=== PATIENT | male | born 1965 | race Caucasian/White ===

== ENCOUNTER → 2016-12-23 | Outpatient (CLI) | payer OTHER ==
[~2016-12-23] MED LIST: FLEXERIL 10 MG10 MG PO; GLUCOVANCE 5-51 EACH PO; LEVEMIR100 UNIT/1 SQ; LYRICA150 MG PO; NORCO 7.5-3251 EACH PO; PRINIVIL20 MG PO; ZYVOX600 MG PO
== END ==
LOC: OPSV 12:00
DX: L30.9 Dermatitis, unspecified (principal); B95.62 Methicillin resistant Staphylococcus aureus infection as the cause of diseases classified elsewhere
CPT/HCPCS: G0463

== ENCOUNTER → 2020-10-24 | Outpatient (CLI) | payer OTHER ==
[~2020-10-24] MED LIST changes: +ACTOS15 MG PO; +ADVIL200 M1 PO; +ALL DAY ALLERGY10 M2 PO; +BACTRIM DS TAB1 EACH PO; +BACTROBAN OINT22 GM EXT; +BACTROBAN OINT22 GM TOP; +CLEOCIN HCL300 MG PO; +CYMBALTA 30 MG30 MG PO; +GLYBURIDE-METF1 EAC1 PO; +LISINOPRIL-HCT1 EAC1 PO; +NEURONTIN600 MG PO; +PREDNISONE5 MG PO; +SUBOXONE 8 MG-1 EACH SL; +VANCOCIN IV 11000 MG IV; +ZOCOR40 MG PO
== END ==
LOC: EMI 15:03
DX: E11.621 Type 2 diabetes mellitus with foot ulcer (principal); L97.429 Non-pressure chronic ulcer of left heel and midfoot with unspecified severity
CPT/HCPCS: 73718

== ENCOUNTER → 2020-11-04 | Outpatient (CLI) | payer OTHER ==
[~2020-11-04] VITALS: Ht 170.2 cm; Wt 75.7 kg
[2020-11-04 11:00] LABS: BUN/CREATININE RATIO 22 (0-10)
--- NOTE | 2020-11-04 12:06 | NUR ---
Single lumen PICC line inserted in the right brachial vein, cut to 39 cm. 3CG technology used to confirm PICC tip in SVC. Upper arm circ = 28.5 cm, lower arm circ = 26 cm. Aspirates and flushes fine. No complications.
== END ==
LOC: OPSV 09:14
PROVIDERS: Podiatrist Foot & Ankle Surgery
DX: E11.621 Type 2 diabetes mellitus with foot ulcer (principal); L97.509 Non-pressure chronic ulcer of other part of unspecified foot with unspecified severity
CPT/HCPCS: 36415; 80053; 96365; C1751; J2185

== ENCOUNTER 2020-11-09 06:47 | Emergency (ER) | payer OTHER | END 2020-11-09 08:00 | disposition home or self-care (01) | LOC: ER1 06:47 | DX: Z45.2 Encounter for adjustment and management of vascular access device (principal); E11.621 Type 2 diabetes mellitus with foot ulcer; L97.529 Non-pressure chronic ulcer of other part of left foot with unspecified severity; Z90.89 Acquired absence of other organs | CPT/HCPCS: 99283 ==

== ENCOUNTER 2020-11-10 16:26 | Emergency (ER) | payer OTHER | END 2020-11-10 16:37 | disposition left against medical advice (07) | LOC: ER1 16:26 | DX: Z53.21 Procedure and treatment not carried out due to patient leaving prior to being seen by health care provider (principal) ==

== ENCOUNTER → 2020-11-12 | Outpatient (CLI) | payer OTHER | LOC: OPSV 07:23 | DX: Z45.2 Encounter for adjustment and management of vascular access device (principal) | CPT/HCPCS: C1751 ==

== ENCOUNTER → 2020-12-23 | Outpatient (CLI) | payer OTHER | LOC: LBRF 17:43 | DX: E11.621 Type 2 diabetes mellitus with foot ulcer (principal); L97.529 Non-pressure chronic ulcer of other part of left foot with unspecified severity | CPT/HCPCS: 87070; 87205 ==

== ENCOUNTER → 2020-12-26 | Outpatient (CLI) | payer OTHER | LOC: KOH-I 08:45 | DX: E11.69 Type 2 diabetes mellitus with other specified complication (principal); M86.9 Osteomyelitis, unspecified; T81.89XA Other complications of procedures, not elsewhere classified, initial encounter; L03.116 Cellulitis of left lower limb | CPT/HCPCS: 73718 ==

== ENCOUNTER → 2021-01-12 | Outpatient (CLI) | payer OTHER ==
[2021-01-12 15:28] LABS: HEMOGLOBIN 11.1 gm/dl (14.0-17.5); RED BLOOD COUNT 4.37 M/UL (4.20-5.50); WHITE BLOOD COUNT 11.1 K/UL (4.5-11.0)
[2021-01-12 15:44] LABS: BUN/CREATININE RATIO 20 (0-10)
== END ==
LOC: LBRF 14:20
PROVIDERS: Podiatrist Foot & Ankle Surgery
DX: Z51.81 Encounter for therapeutic drug level monitoring (principal); Z79.2 Long term (current) use of antibiotics
CPT/HCPCS: 80048; 85027; 85652; 86140

== ENCOUNTER → 2021-02-02 | Outpatient (CLI) | payer OTHER ==
[2021-02-02 17:49] LABS: HEMOGLOBIN 10.7 gm/dl (14.0-17.5); RED BLOOD COUNT 4.15 M/UL (4.20-5.50); WHITE BLOOD COUNT 9.8 K/UL (4.5-11.0)
[2021-02-02 18:08] LABS: BUN/CREATININE RATIO 23 (0-10)
== END ==
LOC: LBRF 16:19
PROVIDERS: Podiatrist Foot & Ankle Surgery
DX: Z51.81 Encounter for therapeutic drug level monitoring (principal); Z79.2 Long term (current) use of antibiotics
CPT/HCPCS: 80048; 85027; 85652; 86140

== ENCOUNTER 2021-02-05 13:17 | Inpatient (IN) | payer OTHER ==
[~2021-02-05] VITALS: Ht 170.2 cm; Wt 80.7 kg
[~2021-02-05 13:17] MED LIST changes: +ACTOS30 MG PO; +CYMBALTA 20 MG20 MG PO; -FLEXERIL 10 MG10 MG PO; -LEVEMIR100 UNIT/1 SQ
[2021-02-05] MEDS ORDERED: AMLODIPINE BESY10 MG PO (17:35)
[2021-02-05] MEDS ORDERED: JARDIANCE25 MG PO (17:36)
[2021-02-05] MEDS ORDERED: METFORMIN HCL1000 MG PO (17:36)
[2021-02-05] MEDS ORDERED: LISINOPRIL40 MG PO (17:36)
[2021-02-05] MEDS ORDERED: VITAMIN D325 MCG PO (17:37)
[2021-02-05] MEDS ORDERED: CRESTOR20 MG PO (17:37)
[2021-02-05 19:59] LABS: HEMOGLOBIN 11.6 gm/dl (14.0-17.5); RED BLOOD COUNT 4.49 M/UL (4.20-5.50); WHITE BLOOD COUNT 10.2 K/UL (4.5-11.0)
[2021-02-05 20:30] LABS: BUN/CREATININE RATIO 16 (0-10)
[2021-02-05] MEDS ORDERED: LEVEMIR100 UNIT/1 SQ (20:30)
[2021-02-05] MEDS ORDERED: CYCLOBENZAPRINE10 MG PO (22:44)
[2021-02-05] MEDS ORDERED: SUBOXONE 8 MG-1 EACH SL (23:47)
--- NOTE | 2021-02-06 16:15 | NUR ---
Right sided PICC line removed per Dr. Hays's orders. Redness noted with some purulent drainage from site. PICC line placed during first part of November of this year. PICC line had approximately 6 cm external. Pt not aware of when the PICC line had been pulled back. 20g PIV placed in left ac prior to PICC removal. Will address need for additional venous access as need arises.
[2021-02-07 07:16] LABS: HEMOGLOBIN 10.3 gm/dl (14.0-17.5); WHITE BLOOD COUNT 11.1 K/UL (4.5-11.0)
[2021-02-07 07:18] LABS: RED BLOOD COUNT 4.01 M/UL (4.20-5.50)
[2021-02-07 08:43] LABS: BUN/CREATININE RATIO 21 (0-10)
[2021-02-08 06:53] LABS: HEMOGLOBIN 9.8 gm/dl (14.0-17.5); RED BLOOD COUNT 3.9 M/UL (4.20-5.50)
[2021-02-08 06:55] LABS: WHITE BLOOD COUNT 14.7 K/UL (4.5-11.0)
[2021-02-08 07:22] LABS: BUN/CREATININE RATIO 26 (0-10)
[2021-02-09 06:27] LABS: HEMOGLOBIN 10.5 gm/dl (14.0-17.5); RED BLOOD COUNT 4.17 M/UL (4.20-5.50); WHITE BLOOD COUNT 12.2 K/UL (4.5-11.0)
[2021-02-09 07:06] LABS: BUN/CREATININE RATIO 23 (0-10)
[2021-02-10 06:17] LABS: HEMOGLOBIN 10.3 gm/dl (14.0-17.5); RED BLOOD COUNT 4.05 M/UL (4.20-5.50); WHITE BLOOD COUNT 10.3 K/UL (4.5-11.0)
[2021-02-10 06:39] LABS: BUN/CREATININE RATIO 20 (0-10)
--- NOTE | 2021-02-10 07:16 | NUR ---
notified security to find patient r/t blood sugar low x2. called for aldridge alert
--- NOTE | 2021-02-10 07:26 | NUR ---
aldridge alert deactivated. patient was in his truck smoking outside and stated he will come up when he's ready to, report from security
--- NOTE | 2021-02-10 08:38 | NUR ---
Patient came back to floor at 0820. Blood glucose was checked and it was 130. Patient has no s/s of hypoglycemia and no concerns at this time.
--- NOTE | 2021-02-10 08:44 | NUR ---
patient arrived on the floor @0820. patient not receptive of smoking cessation teachings and provide teaching of hypoglycemia and acknowledged
--- NOTE | 2021-02-10 12:05 | NUR ---
patient off of the floor at this time to smoke.
--- NOTE | 2021-02-10 18:54 | NUR ---
provided aircast boot to patient and instructed use and stated i had this several times and familiar with it. informed of wound dressing to begin tomorrow on the hemovac site.
[2021-02-11 04:35] LABS: HEMOGLOBIN 10.5 gm/dl (14.0-17.5); RED BLOOD COUNT 4.11 M/UL (4.20-5.50); WHITE BLOOD COUNT 10.2 K/UL (4.5-11.0)
[2021-02-11 05:04] LABS: BUN/CREATININE RATIO 18 (0-10)
--- NOTE | 2021-02-11 06:31 | NUR ---
CRITICAL BGL OF 49 WAS CALLED BY LAB. I RECHECKED AT [facility] AND BGFL WAS 99, I GAVE PATIENT A CUP OF OJ AND RECHECKED IN 15 MINUTES BGL WAS 115. WILL NOTIFY [facility] OF THE PATIENTS DROPPING BGL THE PAST 2 MORNINGS AND SUGGEST THAT MAYBE THE LANTUS CAN BE DECREASED BY
--- NOTE | 2021-02-11 10:08 | NUR ---
discussed with dr. ramírez of patient morning bs ranges on 40's as what happened yesterday morning that resulted of aldridge alert, of considering to look at his blood sugar medications- dr. ramírez acknowledged.
[2021-02-11] MEDS ORDERED: DIFLUCAN200 MG PO (10:12)
[2021-02-11] MEDS ORDERED: FIRST AID ANT28.4 G1 TOP (10:12)
--- NOTE | 2021-02-11 15:18 | NUR ---
patient persistent to leave at [address] ramírez, dr martinez aware. case consultant waiting for insurance to approve IV home medications. patient and the above doctors and case consultant agreed for patient to go to outpatient clinic for IV antibiotics and wound care. patient off the floor to smoke. patient has been off the floor several times that has been affecting of providing care.
--- NOTE | 2021-02-11 15:57 | NUR ---
instructed/informed patient of [facility] outpatient infusion clinic at 10 am -[facility] UND[facility]STANDING
[2021-02-14 14:09] LABS: AMPHETAMINES, URINE Negative ng/mL (Cutoff=1000); BARBITURATE Negative ng/mL (Cutoff=200); BENZODIAZEPINES Negative ng/mL (Cutoff=200); CANNABINOIDS Negative ng/mL (Cutoff=20); COCAINE (METABOLITE) Negative ng/mL (Cutoff=300); CREATININE 73.6 mg/dL (20.0-300.0); ETHANOL CONFIRM 0.039 % (Cutoff=0.020); MEPERIDINE Negative ng/mL (Cutoff=200); METHADONE Negative ng/mL (Cutoff=300); OPIATES Negative ng/mL (Cutoff=300); PHENCYCLIDINE Negative ng/mL (Cutoff=25); PROPOXYPHENE Negative ng/mL (Cutoff=300)
== END 2021-02-11 16:15 | disposition home health service (06) | DRG 264 ==
LOC: M/S 13:17
PROVIDERS: Physician Assistant; Podiatrist Foot & Ankle Surgery; ADMIT Internal Medicine
PROC: 0HRNXK3 Replacement of Left Foot Skin with Nonautologous Tissue Substitute, Full Thickness, External Approach (ICD-10-PCS; 2021-02-07)
PROC: 0QTP0ZZ Resection of Left Metatarsal, Open Approach (ICD-10-PCS; 2021-02-07)
PROC: 0JBR0ZZ Excision of Left Foot Subcutaneous Tissue and Fascia, Open Approach (ICD-10-PCS; principal; 2021-02-07 09:24)
PROC: 02HV33Z Insertion of Infusion Device into Superior Vena Cava, Percutaneous Approach (ICD-10-PCS; 2021-02-11)
PROC: B548ZZA Ultrasonography of Superior Vena Cava, Guidance (ICD-10-PCS; 2021-02-11)
PROC: 02PYX3Z Removal of Infusion Device from Great Vessel, External Approach (ICD-10-PCS; 2021-02-11)
DX: E11.52 Type 2 diabetes mellitus with diabetic peripheral angiopathy with gangrene (principal); Z20.822 Contact with and (suspected) exposure to COVID-19; T80.211A Bloodstream infection due to central venous catheter, initial encounter; F11.20 Opioid dependence, uncomplicated; M86.672 Other chronic osteomyelitis, left ankle and foot; E11.69 Type 2 diabetes mellitus with other specified complication; B35.3 Tinea pedis; E83.42 Hypomagnesemia; I10 Essential (primary) hypertension; F17.210 Nicotine dependence, cigarettes, uncomplicated; Y84.8 Other medical procedures as the cause of abnormal reaction of the patient, or of later complication, without mention of misadventure at the time of the procedure; I45.81 Long QT syndrome; E11.649 Type 2 diabetes mellitus with hypoglycemia without coma; Z79.4 Long term (current) use of insulin; Z89.432 Acquired absence of left foot
CPT/HCPCS: 36415; 71045; 73200; 80048; 80053; 80061; 80202; 80307; 81001; 82728; 82962; 83036; 83540; 83550; 83735; 85025; 85027; 85652; 86140; 87040; 87070; 87086; 87205; 93005; 97161; C1713; J0692; J1100; J1650; J1956; J2001; J2248; J2270; J2405; J2704; J2795; J3010; J3370; J3475; J7030; J7050; J7070; U0002

== ENCOUNTER → 2021-02-12 | Outpatient (CLI) | payer OTHER ==
[~2021-02-12] VITALS: Ht 167.6 cm; Wt 80.0 kg
[~2021-02-12] MED LIST changes: +AMLODIPINE BESY10 MG PO; +CRESTOR20 MG PO; +CYCLOBENZAPRINE10 MG PO; +DIFLUCAN200 MG PO; +FIRST AID ANT28.4 G1 TOP; +JARDIANCE25 MG PO; +LEVEMIR100 UNIT/1 SQ; +LISINOPRIL40 MG PO; +METFORMIN HCL1000 MG PO; +VITAMIN D325 MCG PO
== END ==
LOC: OPSV 10:00
DX: M86.172 Other acute osteomyelitis, left ankle and foot (principal)
CPT/HCPCS: 96365; J1335

== ENCOUNTER → 2021-02-14 | Outpatient (CLI) | payer OTHER | LOC: OPSV 02-13 10:00 | DX: M86.172 Other acute osteomyelitis, left ankle and foot (principal) | CPT/HCPCS: 96365; J1335 ==

== ENCOUNTER → 2021-02-15 | Outpatient (CLI) | payer OTHER | LOC: EROP 10:18 | DX: M86.172 Other acute osteomyelitis, left ankle and foot (principal) | CPT/HCPCS: 96365; J1335 ==

== ENCOUNTER → 2021-02-16 | Outpatient (CLI) | payer OTHER ==
[~2021-02-16] VITALS: Ht 167.6 cm; Wt 80.0 kg
== END ==
LOC: OPSV 13:28
DX: M86.172 Other acute osteomyelitis, left ankle and foot (principal)
CPT/HCPCS: 96365; J1335

== ENCOUNTER → 2021-02-17 | Outpatient (CLI) | payer OTHER ==
[~2021-02-17] VITALS: Ht 167.6 cm; Wt 80.0 kg
== END ==
LOC: OPSV 09:00
DX: M86.172 Other acute osteomyelitis, left ankle and foot (principal)
CPT/HCPCS: 96365; J1335

== ENCOUNTER → 2021-02-18 | Outpatient (CLI) | payer OTHER ==
[~2021-02-18] VITALS: Ht 167.6 cm; Wt 80.0 kg
== END ==
LOC: OPSV 08:59
DX: M86.172 Other acute osteomyelitis, left ankle and foot (principal)
CPT/HCPCS: 96365; J1335

== ENCOUNTER → 2021-02-19 | Outpatient (CLI) | payer OTHER ==
[~2021-02-19] VITALS: Ht 167.6 cm; Wt 80.0 kg
== END ==
LOC: OPSV 08:58
DX: M86.8X7 Other osteomyelitis, ankle and foot (principal)
CPT/HCPCS: 96365; J1335

== ENCOUNTER → 2021-02-20 | Outpatient (CLI) | payer OTHER ==
[~2021-02-20] VITALS: Ht 167.6 cm; Wt 80.0 kg
== END ==
LOC: OPSV 07:49
DX: M86.172 Other acute osteomyelitis, left ankle and foot (principal)
CPT/HCPCS: 96365; J1335

== ENCOUNTER → 2021-02-23 | Outpatient (CLI) | payer OTHER ==
[~2021-02-23] VITALS: Ht 167.6 cm; Wt 80.0 kg
== END ==
LOC: OPSV 08:16
DX: M86.172 Other acute osteomyelitis, left ankle and foot (principal)
CPT/HCPCS: 96365; J1335

== ENCOUNTER → 2021-02-26 | Outpatient (CLI) | payer OTHER ==
[~2021-02-26] VITALS: Ht 167.6 cm; Wt 36.3 kg
== END ==
LOC: OPSV 09:00
DX: M86.9 Osteomyelitis, unspecified (principal)
CPT/HCPCS: 96365; J1335

== ENCOUNTER → 2021-02-27 | Outpatient (CLI) | payer OTHER ==
[~2021-02-27] VITALS: Ht 167.6 cm; Wt 80.0 kg
== END ==
LOC: OPSV 09:00
DX: M86.172 Other acute osteomyelitis, left ankle and foot (principal)
CPT/HCPCS: 96365; J1335

== ENCOUNTER → 2021-03-02 | Outpatient (CLI) | payer OTHER ==
[~2021-03-02] VITALS: Ht 167.6 cm; Wt 80.0 kg
== END ==
LOC: OPSV 09:00
DX: M86.172 Other acute osteomyelitis, left ankle and foot (principal)
CPT/HCPCS: 96365; J1335

== ENCOUNTER → 2021-03-03 | Outpatient (CLI) | payer OTHER | LOC: OPSV 09:00 | DX: M86.172 Other acute osteomyelitis, left ankle and foot (principal) | CPT/HCPCS: 96365; J1335 ==

== ENCOUNTER → 2021-03-04 | Outpatient (CLI) | payer OTHER ==
[~2021-03-04] VITALS: Ht 167.6 cm; Wt 80.0 kg
== END ==
LOC: OPSV 09:00
DX: M86.172 Other acute osteomyelitis, left ankle and foot (principal)
CPT/HCPCS: 96365; J1335

== ENCOUNTER → 2021-03-05 | Outpatient (CLI) | payer OTHER | LOC: OPSV 06:45 | DX: M86.172 Other acute osteomyelitis, left ankle and foot (principal) | CPT/HCPCS: 96365; J1335 ==

== ENCOUNTER → 2021-03-09 | Outpatient (CLI) | payer OTHER ==
[~2021-03-09] VITALS: Ht 167.6 cm; Wt 80.0 kg
== END ==
LOC: OPSV 09:00
DX: Z45.2 Encounter for adjustment and management of vascular access device (principal)
CPT/HCPCS: 96365; C1751; J1335

== ENCOUNTER → 2021-03-10 | Outpatient (CLI) | payer OTHER ==
[~2021-03-10] VITALS: Ht 167.6 cm; Wt 80.0 kg
== END ==
LOC: OPSV 07:54
DX: M86.9 Osteomyelitis, unspecified (principal)
CPT/HCPCS: 96365; J1335

== ENCOUNTER → 2021-03-11 | Outpatient (CLI) | payer OTHER ==
[~2021-03-11] VITALS: Ht 167.6 cm; Wt 80.0 kg
== END ==
LOC: OPSV 09:00
DX: M86.172 Other acute osteomyelitis, left ankle and foot (principal)
CPT/HCPCS: 96365; J1335

== ENCOUNTER → 2021-03-12 | Outpatient (CLI) | payer OTHER ==
[~2021-03-12] VITALS: Ht 167.6 cm; Wt 80.0 kg
== END ==
LOC: OPSV 07:23
DX: M86.172 Other acute osteomyelitis, left ankle and foot (principal)
CPT/HCPCS: 96365; J1335

== ENCOUNTER → 2021-03-16 | Outpatient (CLI) | payer OTHER | LOC: OPSV 09:00 | DX: M86.172 Other acute osteomyelitis, left ankle and foot (principal) | CPT/HCPCS: 96365; J1335 ==

== ENCOUNTER → 2021-03-17 | Outpatient (CLI) | payer OTHER | LOC: OPSV 08:44 | DX: M86.172 Other acute osteomyelitis, left ankle and foot (principal) | CPT/HCPCS: 96365; J1335 ==

== ENCOUNTER → 2021-03-18 | Outpatient (CLI) | payer OTHER ==
[~2021-03-18] VITALS: Ht 167.6 cm; Wt 80.0 kg
== END ==
LOC: OPSV 09:00
DX: M86.172 Other acute osteomyelitis, left ankle and foot (principal)
CPT/HCPCS: 96365; J1335

== ENCOUNTER → 2021-03-19 | Outpatient (CLI) | payer OTHER | LOC: OPSV 09:00 | DX: M86.172 Other acute osteomyelitis, left ankle and foot (principal) | CPT/HCPCS: 96365; J1335 ==

== ENCOUNTER → 2021-03-21 | Outpatient (CLI) | payer OTHER ==
[~2021-03-21] VITALS: Ht 167.6 cm; Wt 81.6 kg
== END ==
LOC: OPSV 07:27
DX: M86.172 Other acute osteomyelitis, left ankle and foot (principal)
CPT/HCPCS: 96365; J1335